=== PATIENT | female | born 2000 ===

== ENCOUNTER 2023-09-01 15:31 | Outpatient (CLI) | payer OTHER, SELFPAY ==
--- NOTE | ~2023-09-01 | US_ITS ---
EXAMINATION: US OB <=14 wk fetus w TV INDICATION: N91.2 - Amenorrhea, unspecified TECHNIQUE: Sonography of the pelvis was performed by transabdominal and transvaginal techniques. COMPARISON: None. RESULT: Uterus: 8.5 x 4.6 x 5.7 cm. Homogenous myometrium. Intrauterine gestational sac: Single present. Yolk sac: Present not directly measured. Embryo: Single present. [place] rump length: 0.9 cm, corresponding gestational age 6 weeks, 6 days. G estational heart rate: present 138 bpm. Subgestational hematoma: Absent . Right ovary: 3.4 x 1.5 x 1.4 cm. Vascular flow is present. No adnexal mass. Left ovary: 3.2 x 1.9 x 2.4 cm. Vascular flow is present. No adnexal mass. Pelvis free fluid: None. IMPRESSION: Single, live intrauterine gestation. Estimated Gestational Age: 6 weeks, 6 days by crown rump length. CHERI by ultrasound 04/20/2024. Reviewed, dictated and finalized at location [facility]. [employer] [employer] IMPRESSION: Single, live intrauterine gestation. Estimated Gestational Age: 6 weeks, 6 days by crown rump length. CHERI by ultras ound 04/20/2024.
== END 2023-09-01 15:32 ==
PROVIDERS: PCP Student in an Organized Health Care Education/Training Program; Visit Provider Student in an Organized Health Care Education/Training Program
DX: N91.2 Amenorrhea, unspecified (principal); Z33.1 Pregnant state, incidental
CPT/HCPCS: 76801; 76817